=== PATIENT | female | born 1965 | race Caucasian/White ===

== ENCOUNTER 2018-05-01 09:30 | Outpatient (CLI) | payer BC ==
--- NOTE | 2018-05-01 12:31 | MRI ---
MRI OF THE RIGHT FOREFOOT: Date: 05-01-18 Provided Clinical History: Plantar plate tear, pain at the plantar aspect of the second and third digits. FINDINGS: Alignment appears anatomic. Joint spaces appear preserved. No region of joint effusion is present. No concerning regional muscular or marrow signal abnormality. No evidence for intermetatarsal bursal fl uid. No MR evidence for marked neuroma. The MTP joint capsules demonstrate an intact MR appearance. The dorsal extensor and plantar flexor te ndons appear intact. There is no evidence for regional tenosynovitis. IMPRESSION: Unremarkable MRI of the right forefoot. POS: C
== END 2018-05-01 09:31 | disposition home or self-care (01) ==
LOC: MRI 09:30
PROVIDERS: ATTEND Podiatrist Foot & Ankle Surgery
DX: S93.149A Subluxation of metatarsophalangeal joint of unspecified toe(s), initial encounter (principal)